=== PATIENT | male | born 1970 | race Caucasian/White ===

== ENCOUNTER 2020-11-07 11:26 | Emergency (ER) | payer OTHER ==
[~2020-11-07] VITALS: Ht 162.6 cm; Wt 70.3 kg
[2020-11-07 12:29] LABS: Source, Urine Clean Catch
[2020-11-07 12:43] LABS: BASOPHILS ABSOLUTE AUTO 0.04 K/mm3 (0.00-0.23); BASOPHILS PERCENT AUTO 1 % (0-2); EOSINOPHILS ABSOLUTE AUTO 0.04 K/mm3 (0.00-0.68); EOSINOPHILS PERCENT AUTO 1 % (0-6); Hematocrit 48.4 % (37.0-53.0); IMMATURE GRAN ABSOLUTE AUTO 0.02 K/mm3 (0.00-0.10); IMMATURE GRAN PERCENT AUTO 0 % (0-1); LYMPHOCYTES ABSOLUTE AUTO 1.74 K/mm3 (0.84-5.20); LYMPHOCYTES PERCENT AUTO 30 % (21-46); MONOCYTES ABSOLUTE AUTO 0.54 K/mm3 (0.16-1.47); MONOCYTES PERCENT AUTO 9 % (4-13); Mean Corpuscular HGB 31.3 pg (26.0-34.0); Mean Corpuscular HGB Conc 35.1 g/dL (31.5-36.5); Mean Corpuscular Volume 89 fL (80-100); Mean Platelet Volume 10.3 fL (9.1-12.4); NEUTROPHILS ABSOLUTE AUTO 3.45 K/mm3 (1.96-9.15); NEUTROPHILS PERCENT AUTO 59 % (41-73); Platelet Count 267 K/mm3 (150-400); RDW Standard Deviation 38.7 fL (35.1-46.3); Red Blood Cell Count 5.44 M/mm3 (4.30-5.90); White Blood Cell Count 5.83 K/mm3 (4.00-11.30)
[2020-11-07 12:54] LABS: Appearance, Urine Clear (Clear); Bilirubin, Urine Neg (Neg); Blood, Urine Neg (Neg); Color, Urine Yellow (P-Yellow); Glucose Qualitative, Urine Neg (Neg); Ketones, Urine Neg (Neg); Leukocyte Esterase, Urine Neg (Neg); Nitrite, Urine Neg (Neg); Protein, Urine Neg (Neg); Urobilinogen, Urine NORM (Normal)
[2020-11-07 13:06] LABS: Alanine Aminotransfer (ALT/SGP 28 U/L (12-78); Albumin, Blood 4.4 g/dL (3.4-5.0); Albumin/Globulin Ratio 1.3 (0.8-1.8); Alk Phos 59 U/L (50-136); Anion Gap 7 mmol/L (6-16); Aspartate Aminotrans (AST/SGOT 23 U/L (12-37); Bilirubin, Total 0.7 mg/dL (0.1-1.0); Blood Urea Nitrogen 8 mg/dL (8-24); Bun/Creatinine Ratio 8.2 (12.0-20.0); CO2, Blood 27 mmol/L (21-32); Calcium, Blood 9.3 mg/dL (8.5-10.1); Chloride, Blood 108 mmol/L (98-108); Creatinine, Blood 0.98 mg/dL (0.60-1.20); Globulin, Blood 3.5 g/dL (2.2-4.0); Glomerular Filtration Rate >60 (60-); Glucose, Blood 92 mg/dL (70-99); Potassium, Blood 3.9 mmol/L (3.5-5.5); Sodium, Blood 142 mmol/L (136-145); Total Protein, Blood 7.9 g/dL (6.4-8.2)
[2020-11-07] MEDS ORDERED: SERT25 PO (13:20)
[2020-11-07 15:32] LABS: Influenza A, PCR NEGATIVE (NEGATIVE); Influenza B, PCR NEGATIVE (NEGATIVE); Resp Syncytial Virus, PCR NEGATIVE (NEGATIVE); SARS-Cov-2 (COVID-19) PCR, MMC NEGATIVE (NEGATIVE)
[2020-11-07] MEDS ORDERED: Norco 5-325 Ta1 EACH PO (16:57)
[2020-11-07] MEDS ORDERED: METPRE4DP PO (16:57)
[2020-11-07] MEDS ORDERED: IBUP800 PO (16:57)
== END 2020-11-07 17:04 | disposition home or self-care (01) ==
LOC: ER 11:26
PROVIDERS: Emergency Medicine; Physician Assistant
DX: R10.9 Unspecified abdominal pain (principal); Z20.822 Contact with and (suspected) exposure to COVID-19; Z79.899 Other long term (current) drug therapy
CPT/HCPCS: 0241U; 36415; 74176; 76770; 80053; 81003; 85025; 96374; 96375; 99284-25; J1885; J2270; J2405; J2550

== ENCOUNTER 2024-12-24 06:07 | Day surgery (SDC) | payer OTHER ==
[~2024-12-24] VITALS: Ht 165 cm; Wt 65.4 kg
[2024-12-24] VITALS (15 sets, daily range): BP systolic 104–136; BP diastolic 71–102
[~2024-12-24 06:07] MED LIST: IBUP200 PO; IBUP800 PO; METPRE4DP PO; Methocarbamol500 MG PO; Norco 5-325 Ta1 EACH PO; SERT25 PO
[2024-12-24] MEDS ORDERED: Magnesium Sulfate 500 MG / ML 2ML Vial ONE (06:31)
[2024-12-24] MEDS ORDERED: Lidocaine HCl 2% 20 ML MDV ONE (06:33)
[2024-12-24] MEDS ORDERED: Metoclopramide HCl 5MG / ML 2ML Vial ONE (06:33)
[2024-12-24] MEDS ORDERED: Ondansetron HCl 2 MG / ML 2ML Vial ONE (06:33)
[2024-12-24] MEDS ORDERED: HYDROmorphone HCl/Pf 1MG SYR ONE (06:38)
[2024-12-24] MEDS ORDERED: Midazolam HCl 1MG / ML 2ML Vial ONE (06:39)
[2024-12-24] MEDS ORDERED: propofoL 20 ML IV ONE ×2 (06:39→10:14)
[2024-12-24] MEDS ORDERED: Phenylephrine HCl 100 MCG/ML-NS 10MLSYR (1MG/10ML) ONE (06:42)
[2024-12-24] MEDS ORDERED: Bupivacaine HCl 0.25% 30 ML Injection ONE (06:42)
[2024-12-24] MEDS ORDERED: Rocuronium Bromide 10 MG/ML 5ML Injection IV ONE ×2 (06:42→09:39)
[2024-12-24] MEDS ORDERED: Lactated Ringer's 1,000 ML IV SCH (06:45)
[2024-12-24] MEDS ORDERED: CeFAZolin Sodium 2,000 MG in NS 100 ML IV SCH (06:45)
--- NOTE | 2024-12-24 06:55 | NUR ---
History, Chart, Medications and Allergies reviewed before start of procedure.Patient confirms NPO status and agrees with scheduled surgery. Patient reports completing Chlorhexadine shower X2 prior to admission to hospital.Patient States Post-Procedure ride home has been arranged. Lungs clear T/O to Auscultation.
--- NOTE | 2024-12-24 07:05 | NUR ---
BLOCK PREFORMED BY PLACED L SHOULDER BLOCK IN DAY SURGERY. ASSISTED BY DR. GONZALEZ. THIS RN PRESENT AT BEDSIDE FPR TIME OUT PREFORMED BY DR. ARAMBULA AT [id number] PRIOR TO START OF PROCEDURE. PATIENT TOLERATED WELL.
[2024-12-24] MEDS ORDERED: EPINEPhrine HCl 1 MG / ML 30ML Vial ONE (07:17)
[2024-12-24] MEDS ORDERED: Tranexamic Acid 100 ML IV SCH (08:15)
[2024-12-24] MEDS ORDERED: Tranexamic Acid 100 ML IV ONE (08:17)
[2024-12-24] MEDS ORDERED: Glycopyrrolate 0.2 MG/ML 5ML VIAL ONE (09:39)
[2024-12-24] MEDS ORDERED: Sugammadex Sodium 200 MG/2ML SDV (100 MG/ML) ONE ×3 (10:43→11:03)
[2024-12-24] MEDS ORDERED: FentaNYL Citrate 50 MCG/ML 2 ML Injection IV PRN ×2 (11:25)
[2024-12-24] MEDS ORDERED: Ondansetron HCl 2 MG / ML 2ML Vial IV PRN (11:25)
[2024-12-24] MEDS ORDERED: Morphine Sulfate 4 MG/1 ML Injection IV PRN ×2 (11:30)
[2024-12-24] MEDS ORDERED: Morphine Sulfate 4 MG/1 ML Injection ONE ×2 (11:37→11:44)
[2024-12-24] MEDS ORDERED: HYDROcodone 5-APAP 325 TAB PO PRN (11:40)
--- NOTE | 2024-12-24 13:12 | NUR ---
Patient up to Ambulate independently with standby assist. Gait steady. Discharge instructions reviewed with patient. Patient verbalizes understanding. Copy given to patient to take home. Dressing to procedure site clean, dry, intact with no visible drainage, swelling, erythema or bruising noted. Arm sling in place. Nerve block still working. Circulation check WNL'S. Instructed to exercise fingers with exercise ball. Patient States Post-Procedure ride home has been arranged with [facility].Discharged via wheelchair to private car for ride home.
== END 2024-12-24 13:25 | disposition home or self-care (01) ==
LOC: ORSCMMR 06:07 → ORD 07:30 → ORSCMMR 13:25
PROVIDERS: Orthopaedic Surgery Sports Medicine
PROC: 0RNK4ZZ Release Left Shoulder Joint, Percutaneous Endoscopic Approach (ICD-10-PCS; principal; 2024-12-24 07:30)
PROC: 0LM24ZZ Reattachment of Left Shoulder Tendon, Percutaneous Endoscopic Approach (ICD-10-PCS; principal; 2024-12-24 07:30)
PROC: 0RQK4ZZ Repair Left Shoulder Joint, Percutaneous Endoscopic Approach (ICD-10-PCS; principal; 2024-12-24 07:30)
PROC: 0LS44ZZ Reposition Left Upper Arm Tendon, Percutaneous Endoscopic Approach (ICD-10-PCS; principal; 2024-12-24 07:30)
DX: S43.432A Superior glenoid labrum lesion of left shoulder, initial encounter (principal); M75.122 Complete rotator cuff tear or rupture of left shoulder, not specified as traumatic; M75.22 Bicipital tendinitis, left shoulder; M75.42 Impingement syndrome of left shoulder
CPT/HCPCS: A9270; C1713; J0171; J0690; J1171; J2250; J2270; J2371; J2405; J2704; J2765; J3475; J7120